=== PATIENT | female | born 1975 | race Caucasian/White ===

== ENCOUNTER → 2016-12-31 | Outpatient (CLI) | payer OTHER | END | disposition home or self-care (01) | LOC: C.PAPS 13:42 | PROVIDERS: ATTEND Obstetrics & Gynecology | DX: Z12.4 Encounter for screening for malignant neoplasm of cervix (principal) ==

== ENCOUNTER → 2017-02-12 | Outpatient (CLI) | payer OTHER | END | disposition home or self-care (01) | LOC: C.LAB1850 12:13 | PROVIDERS: ATTEND Nurse Practitioner Family | DX: E55.9 Vitamin D deficiency, unspecified (principal); E53.8 Deficiency of other specified B group vitamins ==

== ENCOUNTER → 2017-11-15 | Outpatient (CLI) | payer OTHER ==
--- NOTE | 2017-11-15 10:22 | DIAGNOSTIC IMAGING REPORT ---
CHEST 2 VIEWS ROUTINE CLINICAL HISTORY: 41 years-old Female presenting with COUGH for one and half months. TECHNIQUE: PA and lateral views of the chest were obtained. COMPARISON: None. FINDINGS: Cardiomediastinal silhouette normal. Lungs and pleural spaces clear. Osseous structures normal. Upper abdomen normal. IMPRESSION: 1. No acute cardiopulmonary disease. Electronically signed by: Ulises Rodas M.D. 11/15/2017 10:20 AM Dictated Date/Time: 11/15/2017 10:20 AM
[2017-11-15 13:21] LABS: BASO % 0.4 %; BASO ABS # 0.05 K/uL (0-0.2); EOS % 2.6 %; HEMATOCRIT 42.6 % (37-47); HEMOGLOBIN 14.4 g/dL (12.0-16.0); IG# 0.04 K/uL (0.00-0.02); LYMPH % 27.6 %; LYMPH ABS # 3.15 K/uL (1.2-3.4); MEAN CELL VOLUME 89.1 fL (80-100); MEAN CORPUSCULAR HEMOGLOBIN 30.1 pg (25-34); MEAN CORPUSCULAR HGB CONC 33.8 g/dl (32-36); MEAN PLATELET VOLUME 9.3 fL (7.4-10.4); MONO % 8.5 %; MONO ABS # 0.97 K/uL (0.11-0.59); NEUT % 60.5 %; NEUT ABS # 6.89 K/uL (1.4-6.5); PLATELET COUNT 305 K/uL (130-400); RED CELL DISTRIBUTION WIDTH CV 13.8 % (11.5-14.5); RED CELL DISTRIBUTION WIDTH SD 45.1 fL (36.4-46.3)
[2017-11-15 14:05] LABS: BLOOD UREA NITROGEN 8 mg/dl (7-18); CALCIUM 8.8 mg/dl (8.5-10.1); CARBON DIOXIDE 24 mmol/L (21-32); CREATININE 0.66 mg/dl (0.60-1.20); GLUCOSE 128 mg/dl (70-99); POTASSIUM 3.7 mmol/L (3.5-5.1); SODIUM 139 mmol/L (136-145)
== END | disposition home or self-care (01) ==
LOC: C.LABBC 09:51
PROVIDERS: ATTEND Nurse Practitioner Family
DX: R05 Cough (principal); E55.9 Vitamin D deficiency, unspecified

== ENCOUNTER 2018-05-14 02:32 | Emergency (ER) | payer OTHER ==
[~2018-05-14] VITALS: Ht 167.6 cm; Wt 128.0 kg
[2018-05-14 02:35] VITALS: TEMP 36.5; Ht 167.6 cm; Wt 128.0 kg
[2018-05-14] MEDS ORDERED: CIPRO 0.2%/HYDROCORTISONE 1% OTIC SUSP 10 ML BTL OT ONE (03:30)
[2018-05-14] MEDS ORDERED: NORCO 5/325MG HOME PACK PO ONE (03:30)
[2018-05-14] MEDS ORDERED: CIPROFLOXACIN HCL 0.3% OP SOLN 2.5 ML BTL ONE (03:31)
[2018-05-14 03:56] VITALS: BP 152/77; PULSE 69; O2SAT 96
--- NOTE | 2018-05-15 02:24 | EMERGENCY ROOM VISIT NOTE ---
ED Visit Note First contact with patient: 02:44 CHIEF COMPLAINT: Earache HISTORY OF PRESENT ILLNESS: This 42-year-old female patient presents to the emergency department and states they have had a left sided earache worsening over the past 1 day. The patient states that she has had some more mild pain this week and went to her primary care physician's office where she was started on Zithromax. Despite the antibiotic the pain is worsening in the left ear. The pain is moderate, and is gradually increasing. They have noticed swelling and tenderness around the ear canal and pain below the ear on the upper neck. The pain is rated as sharp and 9/10. The patient has not been swimming recently. The patient does not have a history of ear problems. The patient has not had other URI symptoms. The patient has not had a fever. The patient has taken nothing with relief of the pain. REVIEW OF SYSTEMS: A 6 system review of systems was completed with positives and pertinent negatives listed in the HPI. ALLERGIES: NKDA MEDICATIONS: No chronic medications PMH: Otherwise healthy SOCIAL HISTORY: Lives with family PHYSICAL EXAM: Vital Signs: Reviewed Nurse's notes, vital signs stable. GENERAL : White female, in no acute distress, non toxic in appearance, well developed, well nourished. SKIN: Normal. MOUTH: The pharynx is normal in appearance and the tonsils are not enlarged. The airway is patent. There are no exudates over the tonsils. EARS: The left external auditory canal is swollen and inflamed and there is positive tragal tenderness. The tympanic membrane not visualized. The right tympanic membrane is pearly mancilla without erythema or bulging and the external auditory canal is clear. HEART: Regular rate and rhythm without murmurs gallops or rubs. LUNGS: Clear to auscultation bilaterally without wheezes, rales or rhonchi. No dullness to percussion. No accessory muscle use. No retractions. ED COURSE: I examined the patient. A wick was easily placed in the left ear by myself. Cipro HC drops were placed into the ear and the patient was laid on her right side. She tolerated this well. The patient will need to follow with her primary care physician for further care management. She may finish her course of outpatient antibiotics. She was otherwise invited back to the ER with any new, worsening, or concerning symptoms and given discharge instructions as below. Vital Signs Date Time Temp Pulse Resp B/P (MAP) Pulse Ox O2 Delivery O2 Flow Rate FiO2 05/14/18 03:56 69 16 152/77 96 Room Air 05/14/18 02:35 36.5 79 24 180/109 100 Room Air Medications Administered Medications (Trade) Dose Ordered Sig/Cameron Route Start Time Stop Time Status Last Admin Dose Admin Ciprofloxacin/ Hydrocortisone (Cipro Hc Otic Susp) 2 drops NOW ONCE OT 05/14/18 03:30 05/14/18 03:31 DC 05/14/18 03:30 2 DROPS Acetaminophen/ Hydrocodone Bitart ([place] 5/325mg Home Pack) 1 homepack UD ONCE PO 05/14/18 03:30 05/14/18 03:31 DC 05/14/18 03:55 1 HOMEPACK Departure Information Impression Primary Impression: Left otitis externa Dispostion Home / Self-Care Condition GOOD Forms WORK / SCHOOL INSTRUCTIONS, HOME CARE DOCUMENTATION FORM, IMPORTANT VISIT INFORMATION Patient Instructions My [facility] Additional Instructions You were seen and evaluated today on an emergency basis only. This is not a substitute for, or an effort to provide, complete comprehensive medical care. It is not possible to recognize and treat all injuries or illnesses in a single emergency department visit. For this reason it is recommended that you followup with your primary care physician with any ongoing or persisting symptoms. Continue to use Cipro HC otic drops: Instill 3 drops into affected ear twice daily for 7 days Prior to instillation, bottle should be warmed by holding in hands for 1 to 2 minutes; dizziness can occur if a cold suspension is instilled. Shake suspension well immediately before using. Patient should lie with affected ear upward and remain in this position for 30 to 60 seconds following instillation. [place] (hydrocodone/acetaminophen) 5/325 mg (homepack): Take ONE pill by mouth every 6 hours as needed for worsening breakthrough pain. Do not drink or drive on [place]. This medication will likely make you tired. Do not take [place] and Tylenol at the same time as both contain acetaminophen. [place] may cause constipation. You may wish to take an [id number] stool softener like Colace if this occurs. You are welcome to return to the emergency department anytime with new, worsening, or concerning symptoms.
== END 2018-05-14 04:00 | disposition home or self-care (01) ==
LOC: C.EDB 02:33
DX: H60.92 Unspecified otitis externa, left ear (principal)